=== PATIENT | female | born 1985 | race American Indian/Alaskan Native ===

== ENCOUNTER 2016-12-21 14:52 | Emergency (ER) | payer MEDICAID ==
[2016-12-21 15:09] VITALS: BP 109/77
[2016-12-21 16:01] LABS: Basophils % (Auto) 0.5 % (0.0-1.8); Eosinophils % (Auto) 1.8 % (0.0-4.3); Hematocrit 40.5 % (30.3-42.9); Hemoglobin 13.3 gm/dl (10.1-14.3); Mean Corpuscular HGB Conc 33 % (30-34); Mean Corpuscular Hemoglobin 29 pg (28-32); Mean Corpuscular Volume 87 fl (79-97); Platelet Count 191 K/mm3 (140-440); Red Blood Count 4.65 M/mm3 (3.65-5.03); Red Cell Distribution Width 12.8 % (13.2-15.2); White Blood Count 6.6 K/mm3 (4.5-11.0)
[2016-12-21 16:12] LABS: Alanine Aminotransferase 8 units/L (7-56); Albumin/Globulin Ratio 1.1 %; Alkaline Phosphatase 58 units/L (35-129); Anion Gap 18 mmol/L; BUN/Creatinine Ratio 14.28; Blood Urea Nitrogen 10 mg/dL (7-17); Calcium 8.7 mg/dL (8.4-10.2); Carbon Dioxide 25 mmol/L (22-30); Chloride 104.7 mmol/L (98-107); Glucose 87 mg/dL (65-100); Lipase 33 units/L (13-60); Potassium 4.2 mmol/L (3.6-5.0); Sodium 143 mmol/L (137-145); Total Protein 7.5 g/dL (6.3-8.2)
--- NOTE | 2016-12-22 18:14 | ED Elopement Review ---
ED Pt Elopement review - Results review Lab results: Laboratory Tests 12/21/16 12/21/16 12/21/16 15:36 15:36 15:36 WBC 6.6 RBC 4.65 Hgb 13.3 Hct 40.5 MCV 87 MCH 29 MCHC 33 RDW 12.8 L Plt Count 191 Lymph % (Auto) 34.0 [place] % (Auto) 9.2 H Eos % (Auto) 1.8 Baso % (Auto) 0.5 Lymph # 2.2 [place] # 0.6 Eos # 0.1 Baso # 0.0 Seg Neutrophils % 54.5 Seg Neutrophils # 3.6 Sodium 143 Potassium 4.2 Chloride 104.7 Carbon Dioxide 25 Anion Gap 18 BUN 10 Creatinine 0.7 Estimated GFR > 60 BUN/Creatinine Ratio 14.28 Glucose 87 Calcium 8.7 Total Bilirubin 0.30 AST 13 ALT 8 Alkaline Phosphatase 58 Total Protein 7.5 Albumin 4.0 Albumin/Globulin Ratio 1.1 Lipase 33 HCG, Quant < 2 - Call Back decision Pt Call Back Decision: No action required
== END 2016-12-21 22:20 | disposition left against medical advice (07) ==
LOC: ED 14:52
DX: R10.9 Unspecified abdominal pain (principal); Z53.21 Procedure and treatment not carried out due to patient leaving prior to being seen by health care provider
CPT/HCPCS: 36415; 80053; 83690; 84702; 85025

== ENCOUNTER 2016-12-21 23:08 | Emergency (ER) | payer MEDICAID ==
[2016-12-21 23:19] VITALS: BP 120/76
== END 2016-12-22 03:45 | disposition left against medical advice (07) ==
LOC: ED 23:08
DX: R10.9 Unspecified abdominal pain (principal); Z53.21 Procedure and treatment not carried out due to patient leaving prior to being seen by health care provider

== ENCOUNTER 2020-07-15 15:35 | Emergency (ER) | payer MEDICAID ==
[2020-07-15 15:46] VITALS: BP 140/84
--- NOTE | 2020-07-15 16:26 | Event Note ---
ED Screening Note Date of service: 07/15/20 Time: 16:24 ED Screening Note: 35-year-old -[place] female presents to the emergency room complaining of vaginal bleeding since Monday. Patient states that she has been passing lots of clots today. She reports a negative test. This initial assessment/diagnostic orders/clinical plan/treatment(s) is/are subject to change based on patients health status, clinical progression and re- assessment by fellow clinical providers in the ED. Further treatment and workup at subsequent clinical providers discretion. Patient/guardian urged not to elope from the ED as their condition may be serious if not clinically assessed and managed. Initial orders include:
[2020-07-15 16:43] LABS: Basophils % (Auto) 0.6 % (0.0-1.8); Eosinophils # (Auto) 0.1 K/mm3 (0.0-0.4); Eosinophils % (Auto) 1.6 % (0.0-4.3); Hemoglobin 13.1 gm/dl (10.1-14.3); Lymphocytes # (Auto) 2.9 K/mm3 (1.2-5.4); Lymphocytes % (Auto) 33.7 % (13.4-35.0); Mean Corpuscular HGB Conc 33 % (30-34); Mean Corpuscular Volume 86 fl (79-97); Monocytes # (Auto) 0.5 K/mm3 (0.0-0.8); Monocytes % (Auto) 6.3 % (0.0-7.3); Platelet Count 241 K/mm3 (140-440); Red Blood Count 4.64 M/mm3 (3.65-5.03); Red Cell Distribution Width 13.5 % (13.2-15.2)
[2020-07-15 16:49] LABS: Bilirubin,Urine NEG (Negative); Blood,Urine LG (Negative); Color,Urine Yellow (Yellow); Mucus,Urine FEW /HPF; Protein,Urine <15 mg/dL mg/dL (Negative); RBC,Urine > 182.0 /HPF (0.0-6.0)
[2020-07-15 17:03] LABS: Alanine Aminotransferase 6 units/L (7-56); Albumin 4.1 g/dL (3.9-5); Blood Urea Nitrogen 12 mg/dL (7-17); Calcium 8.7 mg/dL (8.4-10.2); Hemolysis Index 4
[2020-07-15 17:07] LABS: BUN/Creatinine Ratio 20
--- NOTE | 2020-07-15 18:04 | Emergency Department Report ---
ED Female HPI - General Chief complaint: Vaginal Bleeding Stated complaint: VAGINAL BLEEDING Time Seen by Provider: 07/15/20 16:59 Source: patient Mode of arrival: Ambulatory Limitations: No Limitations - History of Present Illness Initial comments: 35-year-old female with no significant past medical history presents to the ER today complaining of abnormal vaginal bleeding. Patient states that her menstrual started this past Monday which is when he was supposed to start. It started normally, but today the bleeding was heavier than normal, and she passed a few clots. She also reports increased cramping today in her lower abdomen. Patient states that this is not typical of her menstrual cycle. She states that her bleeding was milder last month, it was spotting for 3 days and because of this she ended up taking a test which was negative. She has not taken any home test since she started her period this past monday. She is not on any control. Denies any anticoagulants or antiplatelets. She denies any bleeding or clotting disorders. She denies similar symptoms in the past. She denies any abnormal vaginal discharge or UTI symptoms. MD Complaint: vaginal bleeding -: Gradual, days(s) (this past monday ) - Related Data Home Medications Medication Instructions Recorded Confirmed Last Taken No Known Home Medications [No 12/21/16 12/21/16 Unknown Reported Home Medications] Allergies Allergy/AdvReac Type Severity Reaction Status Date / Time No Known Allergies Allergy Verified 07/15/20 15:41 ED Review of Systems ROS: Stated complaint: VAGINAL BLEEDING Other details as noted in HPI Comment: All other systems reviewed and negative Gastrointestinal: abdominal pain Genitourinary: abnormal menses. denies: urgency, dysuria, frequency, hematuria, discharge, dyspareunia ED Past Medical Hx - Past Medical History Hx Headaches / Migraines: Yes Additional medical history: Vaginal delivery x 1 - Social History Smoking Status: Current Some Day Smoker Substance Use Type: Alcohol - Medications Home Medications: Home Medications Medication Instructions Recorded Confirmed Last Taken Type No Known Home Medications [No 12/21/16 12/21/16 Unknown History Reported Home Medications] ED Physical Exam - General Limitations: No Limitations General appearance: alert, in no apparent distress - Head Head exam: Present: atraumatic, normocephalic, normal inspection - Eye Eye exam: Present: normal appearance, PERRL, EOMI Pupils: Present: normal accommodation - Neck Neck exam: Present: full ROM - Respiratory Respiratory exam: Absent: respiratory distress - Cardiovascular Cardiovascular Exam: Present: regular rate - GI/Abdominal GI/Abdominal exam: Present: soft, tenderness (Mild lower abd ttp ). Absent: distended, guarding, rebound - Back Exam Back exam: Present: normal inspection - Neurological Exam Neurological exam: Present: alert, oriented X3, CN II-XII intact, normal gait - Psychiatric Psychiatric exam: Present: normal affect, normal mood - Skin Skin exam: Present: intact ED Course Vital Signs 07/15/20 15:43 Temperature 99.9 F H Pulse Rate 68 Respiratory 16 Rate Blood Pressure 140/84 O2 Sat by Pulse 98 Oximetry ED Medical Decision Making - Lab Data Result diagrams: 07/15/20 16:32 07/15/20 16:32 - Medical Decision Making 35-year-old female with no significant past medical history presents to the ER today complaining of abnormal vaginal bleeding. Patient states that her menstrual started this past Monday which is when he was supposed to start. It started normally, but today the bleeding was heavier than normal, and she passed a few clots. She also reports increased cramping today in her lower abdomen. Patient states that this is not typical of her menstrual cycle. She states that her bleeding was milder last month, it was spotting for 3 days and because of this she ended up taking a test which was negative. She has not taken any home test since she started her period this past monday. She is not on any control. Denies any anticoagulants or antiplatelets. She denies any bleeding or clotting disorders. She denies similar symptoms in the past. She denies any abnormal vaginal discharge or UTI symptoms. Labs reviewed: CBC, and CMP unremarkable. Quant hCG less than 2. Urinalysis does not suggest UTI. Patient is well-appearing, nontoxic, does not appear to be in any acute pain or respiratory distress. She appears well-hydrated. She is neurologically intact with a normal gait. Physical exam unremarkable. Vital signs are stable. Discussed results and suspected diagnosis with patient. No further work-up fariha cated at this time. Patient has an APPLICATIONS SPECIALIST and therefore I recommend that she follow-up with APPLICATIONS SPECIALIST for further evaluation including a pelvic ultrasound if her symptoms continues. She expressed understanding of instructions. she understands to return to the ER if her symptoms worsens. Patient was stable at time of discharge. Critical care attestation.: If time is entered above; I have spent that time in minutes in the direct care of this critically ill patient, excluding procedure time. ED Disposition Clinical Impression: Abnormal vaginal bleeding Disposition: TO HOME OR SELFCARE Is pt being admited?: No Does the pt Need Aspirin: No Condition: Stable Instructions: Abnormal Uterine Bleeding, [id number] Additional Instructions: Recommend that you follow-up with your APPLICATIONS SPECIALIST next week as discussed. You can take Tylenol or ibuprofen as needed for pain. Return to the ER if your symptoms changes or worsens in any way. Referrals: PRIMARY CARE, [Primary Care Provider] - 3-5 Days Time of Disposition: 18:04
== END 2020-07-15 18:24 | disposition home or self-care (01) ==
LOC: ED 15:35
DX: N93.9 Abnormal uterine and vaginal bleeding, unspecified (principal); G43.909 Migraine, unspecified, not intractable, without status migrainosus; F17.200 Nicotine dependence, unspecified, uncomplicated
CPT/HCPCS: 36415; 80053; 81001; 84702; 85025